=== PATIENT | female | born 1990 | race American Indian/Alaskan Native ===

== ENCOUNTER 2022-06-26 12:12 | Emergency (ER) | payer BC ==
[~2022-06-26] VITALS: Ht 170.2 cm; Wt 120.4 kg
[2022-06-26] MEDS ORDERED: ZITHROMAX250 MG PO (13:28)
[2022-06-26] MEDS ORDERED: CORTISPORIN-TC10 M1 LEFT EAR (13:30)
== END 2022-06-26 13:46 | disposition home or self-care (01) ==
LOC: FSED 12:27
DX: O26.91 Pregnancy related conditions, unspecified, first trimester (principal); H60.92 Unspecified otitis externa, left ear; R05.9 Cough, unspecified; J06.9 Acute upper respiratory infection, unspecified; J45.909 Unspecified asthma, uncomplicated; Z86.39 Personal history of other endocrine, nutritional and metabolic disease
CPT/HCPCS: 81003; 81025; 83518; 87400; 99283